=== PATIENT | female | born 2000 | race African-American/Black ===

== ENCOUNTER 2023-05-18 13:31 | Emergency (ER) | payer OTHER, SELFPAY ==
[2023-05-18 14:02] VITALS: BP 133/96; PULSE 90; RESP 16; TEMP 37.3; O2SAT 100
--- NOTE | 2023-05-18 14:52 | ED.ABDPAIN ---
HPI - Abdominal Pain General Chief Complaint: Abdominal Pain Stated Complaint: Abdominal Pain Time Seen by Provider: 05/18/23 14:44 Source: patient and RN notes reviewed Mode of arrival: ambulatory Limitations: no limitations History of Present Illness HPI narrative: Patient presents today complaining of severe? abdominal pain, nausea, diarrhea since yesterday. Reports 4-5 episodes of diarrhea yesterday and 2 so far today. Denies blood or mucus in stool. Denies fever or vomiting. Denies known sick contacts. Currently rates her abdominal pain 6/10 and has tried Tylenol without relief. States she is unable to stand up straight due to her abdominal pain. Related Data Home Medications Medication Instructions Recorded Confirmed albuterol 90 mcg/actuation aerosol mcg inhalation 05/18/23 inhaler Allergies Allergy/AdvReac Type Severity Reaction Status Date / Time No Known Allergies Allergy Verified 05/18/23 13:48 Review of Systems Review of Systems: CONSTITUTIONAL: Denies body aches, fever, chills, or sweats. EYES: Denies visual changes, redness, or discharge. ENT: Denies rhinorrhea, congestion, sore throat, or otalgia. CARDIOVASCULAR: Denies chest pain, palpitations, or edema. RESPIRATORY: Denies cough or dyspnea. GASTROINTESTINAL:+ abdominal pain, nausea, diarrhea. GENITOURINARY: Denies dysuria or hematuria. SKIN: Denies rash, itching, or wounds. MUSCULOSKELETAL: Denies back pain, joint pain, or myalgia. NEUROLOGIC: Denies headache, numbness, tingling, or weakness. PSYCH: Denies depression or anxiety. PMFSH Comments At time of signature, I have reviewed and agree with nursing past medical, surgical, social and family history unless otherwise noted. Please see nursing chart for further information. There is no relevant family history pertinent to the presenting complaint Exam Narrative: GENERAL: Well-appearing, well-nourished, and in no acute distress. HEAD: Normocephalic, atraumatic. EYES: EOMI. No redness or drainage. Conjunctivae normal. ENT: Mucous membranes pink and moist. NECK: Normal AROM. Supple. No lymphadenopathy. CHEST: No respiratory distress. Clear to auscultation. HEART: Regular rate and rhythm. No murmur appreciated. Normal peripheral pulses. ABDOMEN: Soft, nondistended, normal active bowel sounds. Generalized tenderness and guarding through the entire abdomen except the left lower quadrant. EXTREMITIES: Normal range of motion. No edema. SKIN: Warm, dry, no rash. Capillary refill normal. Normal skin turgor. NEURO: No focal deficits. Alert and oriented x3. Gait steady. PSYCH: Normal affect. No signs of depression or anxiety. Course Course Level of Care: Express Care Visit Vital Signs Vital signs: Vital Signs Temperature 99.1 F 05/18/23 14:02 Pulse Rate 90 05/18/23 14:02 Respiratory Rate 16 05/18/23 14:02 Blood Pressure 133/96 H 05/18/23 14:02 Pulse Oximetry 100 05/18/23 14:02 Oxygen Delivery Room Air 05/18/23 14:02 Temperature 99.1 F 05/18/23 14:02 Pulse Rate 90 05/18/23 14:02 Respiratory Rate 16 05/18/23 14:02 Blood Pressure 133/96 H 05/18/23 14:02 Pulse Oximetry 100 05/18/23 14:02 Oxygen Delivery Room Air 05/18/23 14:02 Reviewed Transfer Transfered to: [facility] Transportation: Other (Private vehicle) Transfer rationale: Abdominal pain, diarrhea Accepting physician: Jose Luis MDM - Abdominal Pain MDM Narrative Medical decision making narrative: Due to patient's generalized abdominal tenderness and severe pain, she will be transferred to the ER for further evaluation. No testing indicated at this time. Differential Diagnosis Differential diagnosis: Likely abdominal pain, acute appendicitis, diverticulitis and gastroenteritis Critical Care Time Critical Care Time Critical Care Time: No Discharge Plan Discharge Clinical Impression: Acute generalized abdominal pain Diarrhea Qualifiers: Diarrhea type: u
== END 2023-05-18 14:57 | disposition short-term general hospital (02) ==
PROVIDERS: Emergency Provider Nurse Practitioner
DX: R10.84 Generalized abdominal pain (principal); R19.7 Diarrhea, unspecified
CPT/HCPCS: 99212; G0463